=== PATIENT | female | born 1965 | race Caucasian/White ===

== ENCOUNTER → 2018-01-02 | Outpatient (CLI) | payer BC ==
[~2018-01-02] VITALS: Ht 180.3 cm; Wt 108.8 kg
[2018-01-02] VITALS (9 sets, daily range): BP systolic 134–156; BP diastolic 82–99; PULSE 66–78
[~2018-01-02] MED LIST: ARAVA 20MG TABL20 MG PO; CYMBALTA 20MG20 MG PO; ESTRACE0.5 MG PO; LEVSIN0.125 M1 PO; PLAQUENIL 200M200 MG PO; PREDNISONE1 MG PO; PROTONIX20 MG PO; SYNTHROID0.088 MG/T PO
== END ==
LOC: COL.RAD 08:56
PROVIDERS: Radiology Diagnostic Radiology
DX: R74.8 Abnormal levels of other serum enzymes (principal); K59.00 Constipation, unspecified; Z90.49 Acquired absence of other specified parts of digestive tract

== ENCOUNTER → 2019-02-12 | Outpatient (CLI) | payer BC | LOC: COL.RAD 02-08 08:15 | DX: K76.0 Fatty (change of) liver, not elsewhere classified (principal); M06.9 Rheumatoid arthritis, unspecified; R93.2 Abnormal findings on diagnostic imaging of liver and biliary tract; R74.8 Abnormal levels of other serum enzymes; Z90.49 Acquired absence of other specified parts of digestive tract ==

== ENCOUNTER 2023-10-06 07:12 | Day surgery (SDC) | payer BC ==
[2023-10-06] VITALS (20 sets, daily range): BP systolic 121–152; BP diastolic 75–98; PULSE 65–81; TEMP 98.9
[~2023-10-06] VITALS: Ht 180.3 cm; Wt 116.3 kg
[~2023-10-06 07:12] MED LIST changes: +PROTONIX 40MG T40 MG PO; -PROTONIX20 MG PO; -SYNTHROID0.088 MG/T PO; +SYNTHROID0.112 MG/T PO
[2023-10-06 08:21] LABS: HEMATOCRIT 40.5 % (37.0-47.0); HEMOGLOBIN 13.4 g/dl (12.5-16.0); MEAN CELL VOLUME 86 fl (80.0-100.0); MEAN CORPUSCULAR HEMOGLOBIN 28 pg (27-31); MEAN CORPUSCULAR HGB CONC 33 g/dl (33.0-37.0); MEAN PLATELET VOLUME 12.2 fl (7.4-10.4); PLATELET COUNT 169 K/mm3 (130-400); RED BLOOD COUNT 4.73 M/mm3 (4.10-5.30); REDCELL DISTRIBUTION WIDTH-CV 13.4 % (11.5-14.5)
[2023-10-06 08:28] LABS: PROTHROMBIN TIME 11.2 SECONDS (9.7-12.8)
[2023-10-06 08:31] LABS: PARTIAL THROMBOPLASTIN TIME 28.7 SECONDS (26.0-37.0)
[2023-10-06 08:34] LABS: CALCIUM 8.7 mg/dL (8.4-10.2); CREATININE, serum 0.76 mg/dL (0.57-1.11); POTASSIUM 3.9 mmol/L (3.5-4.5)
[2023-10-06] MEDS ORDERED: ASPIRIN 81M81 MG/TA2 PO ×2 (08:36→10:37)
[2023-10-06] MEDS ORDERED: DEXEDRINE5 MG PO (08:37)
[2023-10-06] MEDS ORDERED: CARDIZEM CD 30300 MG PO (08:39)
[2023-10-06] MEDS ORDERED: NEURONTIN300 MG/CAP PO (08:40)
[2023-10-06] MEDS ORDERED: LAMICTAL XR100 MG PO (08:41)
[2023-10-06] MEDS ORDERED: CLARITIN 1010 MG/TAB PO (08:41)
[2023-10-06] MEDS ORDERED: COZAAR 50MG50 MG/TAB PO (08:42)
[2023-10-06] MEDS ORDERED: VICTOZA6 MG/ML SQ (08:43)
[2023-10-06] MEDS ORDERED: HUMIRA PEN40 MG/0.4 SQ (08:44)
[2023-10-06] MEDS ORDERED: CRESTOR20 MG PO (08:45)
[2023-10-06] MEDS ORDERED: EFFEXOR-XR150 MG PO (08:45)
--- NOTE | 2023-10-06 09:00 | NUR ---
Patient to procedure at this time.
--- NOTE | 2023-10-06 09:17 | NUR ---
SEE MERGE DOCUMENTATION FOR MEDICATION ADMINISTRATION AND INTRA/POST PROCEDURE SEDATION ASSESSMENTS.
[2023-10-06] MEDS ORDERED: IMDUR 60MG60 MG/TAB PO (10:34)
--- NOTE | 2023-10-06 11:08 | NUR ---
Pt returned from procedure,report from SIMON Chew.Dressing to right groin observed clean,dry,and soft upon arrival.Right wrist observed clean,dry,air band intact with 122cc air reported.
--- NOTE | 2023-10-06 14:18 | NUR ---
Small amount of bleeding observed at right radial site.3ml of air reinstilled into radial compression band.
--- NOTE | 2023-10-06 15:45 | NUR ---
Discharge instructions given to pt.pt verbalizes understanding.pt escorted out via wheelchair by this nurse.
== END 2023-10-06 16:54 ==
LOC: COL.CAR 07:12
PROVIDERS: Internal Medicine Cardiovascular Disease
DX: I25.10 Atherosclerotic heart disease of native coronary artery without angina pectoris (principal); I27.20 Pulmonary hypertension, unspecified; I10 Essential (primary) hypertension; E78.2 Mixed hyperlipidemia; I49.3 Ventricular premature depolarization; I34.0 Nonrheumatic mitral (valve) insufficiency; Z87.891 Personal history of nicotine dependence; Z95.5 Presence of coronary angioplasty implant and graft
CPT/HCPCS: C1769; C1887; C1894; J0153; J1644; J3010; Q9967